=== PATIENT | female | born 1930 | race Caucasian/White ===

== ENCOUNTER 2017-03-01 09:38 | Emergency (ER) | payer MEDICARE, OTHER ==
[~2017-03-01 09:38] MED LIST: ACETAMINOPHEN500 M5 PO; ADVIL200 M3 PO; ASPIRIN EC81 MG PO; ASPIRIN325 M3 PO; ATORVASTATIN CA20 M1 PO; FOSINOPRIL SODI20 M2 PO; GUMMI BEAR MUL1 EAC1 PO; JANUVIA25 M1 PO; LOPERAMIDE2 M2 PO; METOPROLOL SUCC25 M1 PO; NEURONTIN300 M1 PO; TOPROL XL50 M1 PO; TRAMADOL HCL50 M2 PO; ULTRAM50 M1 PO; XALATAN2.5 M1 LEFT EYE
[2017-03-01] MEDS ORDERED: NORVASC5 M2 PO (10:39)
[2017-03-01] MEDS ORDERED: NEURONTIN300 M1 PO (10:42)
[2017-03-01] MEDS ORDERED: ULTRAM50 M1 PO (11:28)
[2017-04-30] MEDS ORDERED: ELIQUIS2.5 M1 PO (11:50)
[2017-04-30] MEDS ORDERED: PACERONE200 M1 PO (11:51)
[2017-04-30] MEDS ORDERED: COZAAR50 M1 PO (11:55)
[2017-04-30] MEDS ORDERED: ALDACTONE25 M1 PO (11:57)
[2017-04-30] MEDS ORDERED: LASIX40 M1 PO (12:00)
== END 2017-03-01 11:42 ==
LOC: EDMED 09:38
DX: M25.561 Pain in right knee (principal); W01.0XXA Fall on same level from slipping, tripping and stumbling without subsequent striking against object, initial encounter; Y92.009 Unspecified place in unspecified non-institutional (private) residence as the place of occurrence of the external cause

== ENCOUNTER 2017-03-12 10:36 | Emergency (ER) | payer MEDICARE, OTHER ==
[~2017-03-12 10:36] MED LIST changes: +NORVASC5 M2 PO
[2017-03-12] MEDS ORDERED: ASPIRIN EC81 MG PO (11:22)
[2017-03-12 11:50] LABS: BASO % 0.1 % (0-2); EOS % 1.8 % (0-7); EOSINOPHIL ABSOLUTE COUNT 0.1 tho/cmm (0.0-0.7); HCT-HEMATOCRIT 37.1 % (34.0-49.0); HGB-HEMOGLOBIN 12.7 gm/dl (12.0-15.5); IMMATURE GRANULOCYTES ABSOLUTE 0.01 tho/cmm (0-0.03); IMMATURE GRANULOCYTES PERCENT 0.1 % (0-0.3); LYMPH % 34.1 % (20-45); LYMPH ABSOLUTE COUNT 2.4 tho/cmm (0.8-4.5); MCH (MEAN CORPUSCULAR HGB) 34.5 pg (28.0-32.0); MCHC MEAN CORPUSCULAR HGB CONC 34.2 % (32.0-36.0); MCV (MEAN CELL VOLUME) 100.8 fl (82.0-96.0); MONO % 3.6 % (0-12); MONOCYTE ABSOLUTE COUNT 0.3 tho/cmm (0.0-1.2); NEUTROPHIL ABSOLUTE COUNT 4.2 tho/cmm (1.6-8.0); NEUTROPHIL-AUTOMATED 4.2 tho/cmm (1.6-8.0); NEUTROPHILS % 60.3 % (40-80); PLATELET COUNT 159 tho/cmm (150-450); RED BLOOD COUNT 3.68 mil/cmm (4.00-5.20)
[2017-03-12 11:59] LABS: ANION GAP 14 mmol/L (0-20); BLOOD UREA NITROGEN 16 mg/dl (6-24); CALCIUM 8.8 mg/dl (8.5-10.5); CARBON DIOXIDE-VENOUS 26 mmol/L (22-32); CHLORIDE 108 mmol/l (96-110); CREATININE 1.27 mg/dl (0.50-1.10); GLUCOSE 126 mg/dL (70-110); POTASSIUM 3.3 mmol/L (3.7-5.1); SODIUM 145 mmol/L (135-145); eGFR VALUE FOR BLACK 43 mL/Min
[2017-03-12] MEDS ORDERED: ULTRAM50 M1 PO (13:09)
[2017-04-30] MEDS ORDERED: ELIQUIS2.5 M1 PO (11:50)
[2017-04-30] MEDS ORDERED: PACERONE200 M1 PO (11:51)
[2017-04-30] MEDS ORDERED: COZAAR50 M1 PO (11:55)
[2017-04-30] MEDS ORDERED: ALDACTONE25 M1 PO (11:57)
[2017-04-30] MEDS ORDERED: LASIX40 M1 PO (12:00)
== END 2017-03-12 13:22 ==
LOC: EDMED 10:36
PROVIDERS: Emergency Medicine
DX: S76.911A Strain of unspecified muscles, fascia and tendons at thigh level, right thigh, initial encounter (principal); K92.2 Gastrointestinal hemorrhage, unspecified; E87.6 Hypokalemia; Z96.651 Presence of right artificial knee joint; Z79.82 Long term (current) use of aspirin; Z79.899 Other long term (current) drug therapy; W19.XXXA Unspecified fall, initial encounter; Y92.019 Unspecified place in single-family (private) house as the place of occurrence of the external cause

== ENCOUNTER 2017-06-22 22:03 | Inpatient (IN) | payer MEDICARE, OTHER ==
[~2017-06-22] VITALS: Ht 160 cm; Wt 77.7 kg
[~2017-06-22 22:03] MED LIST changes: +ALDACTONE25 M1 PO; +COZAAR50 M1 PO; +ELIQUIS2.5 M1 PO; +LASIX40 M1 PO; +PACERONE200 M1 PO
[2017-06-22] MEDS ORDERED: MACROBID 100 M100 M1 PO (22:29)
[2017-06-22 22:39] LABS: BASO % 0.3 % (0-2); EOSINOPHIL ABSOLUTE COUNT 0.1 tho/cmm (0.0-0.7); HCT-HEMATOCRIT 36.7 % (34.0-49.0); HGB-HEMOGLOBIN 12.1 gm/dl (12.0-15.5); LYMPH % 24.4 % (20-45); LYMPH ABSOLUTE COUNT 1.7 tho/cmm (0.8-4.5); MCH (MEAN CORPUSCULAR HGB) 34.4 pg (28.0-32.0); MCV (MEAN CELL VOLUME) 104.3 fl (82.0-96.0); MONO % 9.5 % (0-12); MONOCYTE ABSOLUTE COUNT 0.6 tho/cmm (0.0-1.2); NEUTROPHIL ABSOLUTE COUNT 4.4 tho/cmm (1.6-8.0); NEUTROPHIL-AUTOMATED 4.4 tho/cmm (1.6-8.0); NEUTROPHILS % 64.8 % (40-80); PLATELET COUNT 165 tho/cmm (150-450); RED BLOOD COUNT 3.52 mil/cmm (4.00-5.20); WHITE BLOOD COUNT 6.8 tho/cmm (4.0-10.0)
[2017-06-22 22:55] LABS: ANION GAP 14 mmol/L (0-20); BLOOD UREA NITROGEN 43 mg/dl (6-24); CALCIUM 8.8 mg/dl (8.5-10.5); CARBON DIOXIDE-VENOUS 23 mmol/L (22-32); CHLORIDE 105 mmol/l (96-110); CREATININE 1.86 mg/dl (0.50-1.10); GLUCOSE 269 mg/dL (70-110); SODIUM 138 mmol/L (135-145); eGFR VALUE FOR BLACK 27 mL/Min
[2017-06-23 02:59] LABS: URINE BILIRUBIN NEGATIVE (NEG); URINE BLOOD LARGE (NEG); URINE GLUCOSE (UA) NEGATIVE (NEG); URINE KETONE NEGATIVE (NEG); URINE LEUKOCYTE ESTERASE POSITIVE (NEG); URINE NITRITE NEGATIVE (NEG); URINE PROTEIN MODERATE (NEG)
[2017-06-23 03:05] LABS: URINE APPEARANCE SL CLOUDY; URINE COLOR YELLOW
[2017-06-23 05:21] LABS: BASO % 0.3 % (0-2); EOS % 0.9 % (0-7); EOSINOPHIL ABSOLUTE COUNT 0.1 tho/cmm (0.0-0.7); HCT-HEMATOCRIT 35.6 % (34.0-49.0); HGB-HEMOGLOBIN 11.6 gm/dl (12.0-15.5); IMMATURE GRANULOCYTES ABSOLUTE 0.01 tho/cmm (0-0.03); IMMATURE GRANULOCYTES PERCENT 0.1 % (0-0.3); LYMPH ABSOLUTE COUNT 2.5 tho/cmm (0.8-4.5); MCHC MEAN CORPUSCULAR HGB CONC 32.6 % (32.0-36.0); MCV (MEAN CELL VOLUME) 104.4 fl (82.0-96.0); MEAN PLATELET VOLUME 11.1 cmc (9.4-12.4); MONO % 8.2 % (0-12); MONOCYTE ABSOLUTE COUNT 0.6 tho/cmm (0.0-1.2); NEUTROPHIL ABSOLUTE COUNT 4.5 tho/cmm (1.6-8.0); NEUTROPHIL-AUTOMATED 4.5 tho/cmm (1.6-8.0); NEUTROPHILS % 58.5 % (40-80); PLATELET COUNT 149 tho/cmm (150-450); RED BLOOD COUNT 3.41 mil/cmm (4.00-5.20); RED CELL DISTRIBUTION WIDTH 16.1 % (12.4-16.4); WHITE BLOOD COUNT 7.7 tho/cmm (4.0-10.0)
[2017-06-23 05:30] LABS: ANION GAP 12 mmol/L (0-20); BLOOD UREA NITROGEN 42 mg/dl (6-24); CALCIUM 8.9 mg/dl (8.5-10.5); CARBON DIOXIDE-VENOUS 27 mmol/L (22-32); CHLORIDE 104 mmol/l (96-110); CREATININE 1.67 mg/dl (0.50-1.10); GLUCOSE 192 mg/dL (70-110); SODIUM 139 mmol/L (135-145); eGFR VALUE FOR BLACK 31 mL/Min
[2017-06-24 05:14] LABS: ANION GAP 13 mmol/L (0-20); BLOOD UREA NITROGEN 41 mg/dl (6-24); CALCIUM 8.6 mg/dl (8.5-10.5); CARBON DIOXIDE-VENOUS 26 mmol/L (22-32); CHLORIDE 104 mmol/l (96-110); CREATININE 1.53 mg/dl (0.50-1.10); GLUCOSE 200 mg/dL (70-110); POTASSIUM 3.9 mmol/L (3.7-5.1); SODIUM 139 mmol/L (135-145); eGFR VALUE FOR BLACK 35 mL/Min
[2017-06-25] MEDS ORDERED: TOPROL XL100 M1 PO (11:40)
[2017-06-25] MEDS ORDERED: MUCINEX600 M1 PO (11:41)
[2017-06-25] MEDS ORDERED: DEMADEX20 M1 PO (11:43)
== END 2017-06-25 12:55 | disposition home health service (06) | DRG 291 ==
LOC: EDMED 22:03 → CAR1 06-23 01:48 → EMR2 06-23 01:48 → CAR1 06-23 01:50
PROVIDERS: Emergency Medicine; Nurse Practitioner; ADMIT Family Medicine
PROC: 5A09357 Assistance with Respiratory Ventilation, Less than 24 Consecutive Hours, Continuous Positive Airway Pressure (ICD-10-PCS; principal; 2017-06-23)
DX: I13.0 Hypertensive heart and chronic kidney disease with heart failure and stage 1 through stage 4 chronic kidney disease, or unspecified chronic kidney disease (principal); I50.43 Acute on chronic combined systolic (congestive) and diastolic (congestive) heart failure; N17.9 Acute kidney failure, unspecified; I27.2 Other secondary pulmonary hypertension; I48.1 Persistent atrial fibrillation; G47.33 Obstructive sleep apnea (adult) (pediatric); Z79.01 Long term (current) use of anticoagulants; R05 Cough; E66.9 Obesity, unspecified; Z79.82 Long term (current) use of aspirin; I08.1 Rheumatic disorders of both mitral and tricuspid valves; R73.9 Hyperglycemia, unspecified; R07.9 Chest pain, unspecified; N18.3 Chronic kidney disease, stage 3 (moderate); Z68.30 Body mass index [BMI] 30.0-30.9, adult
CPT/HCPCS: G8978-GP-CK; G8979-GP-CJ; G8980-GP-CK; G8987-GO-CJ; G8988-GO-CI; G8989-GO-CJ; J1815; J1940; J7030